=== PATIENT | male | born 1975 | race Caucasian/White ===

== ENCOUNTER 2018-05-26 07:34 | Outpatient (CLI) | payer BC, SELFPAY ==
[2018-05-26 08:37] LABS: Hemoglobin A1C 6.1 % (4.5-6.2)
[2018-05-26 09:31] LABS: ALT 26 U/L (12-78); AST 20 U/L (15-37); Albumin 3.8 g/dL (3.4-5.0); Alkaline Phosphatase 89 U/L (46-116); Anion Gap 5.6 mmol/L (3-11); BUN 15 mg/dL (7-18); Bilirubin, Total 0.9 mg/dL (0.2-1.0); CO2 32.4 mmol/L (21.0-32.0); CREATININE 0.89 mg/dL (0.70-1.30); Calcium 9.2 mg/dL (8.5-10.1); Chloride 104 mmol/L (98-107); Cholesterol 165 mg/dL (50-200); Glucose 100 mg/dL (70-100); HDL Cholesterol 57 mg/dL (40-60); LDL CHOLESTEROL 99 mg/dL (<100); Potassium 4.2 mmol/L (3.5-5.1); Sodium 142 mmol/L (136-145); Total Protein 6.6 g/dL (6.4-8.2); Triglyceride 49 mg/dL (30-150)
== END 2018-05-26 07:54 ==
PROVIDERS: PCP Family Medicine; Visit Provider Family Medicine
DX: E10.9 Type 1 diabetes mellitus without complications (principal); Z00.00 Encounter for general adult medical examination without abnormal findings
CPT/HCPCS: 36415; 80053; 80061; 83721; 83036

== ENCOUNTER 2020-05-26 10:35 | Outpatient (CLI) | payer BC, SELFPAY ==
--- NOTE | 2020-05-26 12:30 | DI.RAD_ITS ---
EXAM: XR RIBS LT W PA LAT CHEST CLINICAL HISTORY: left rib pain, PLEURODYNIA, R07.81 TECHNIQUE: COMPARISON: No exams were available for comparison FINDINGS: PA and lateral chest and 4 additional views of the left ribs were obtained. No rib fracture seen. N o evidence of pneumothorax or pleural effusion. The lungs are clear. Cardiac size is within normal limits. IMPRESSION: Negative examination of the chest and left ribs. RADIATION DOSE DELIVERED: Total DLP
== END 2020-05-26 10:55 ==
PROVIDERS: PCP Family Medicine; Visit Provider Nurse Practitioner Family
DX: R07.81 Pleurodynia (principal)
CPT/HCPCS: 71046; 71100

== ENCOUNTER 2020-09-13 20:43 | Outpatient (REF) | payer BC, SELFPAY ==
[2020-09-13 20:57] LABS: COMMENT (LAB VIEW ONLY) 140.98 mg/dL
== END 2020-09-13 20:44 | disposition home or self-care (01) ==
LOC: LBN 20:43
PROVIDERS: PCP Family Medicine; Visit Provider Physician Assistant
DX: E10.9 Type 1 diabetes mellitus without complications (principal)
CPT/HCPCS: 82043; 82570

== ENCOUNTER 2022-11-16 02:11 | Outpatient (CLI) | payer BC, SELFPAY ==
[2022-11-16 16:51] LABS: Hemoglobin A1C 5.6 % (<5.7)
[2022-11-16 17:10] LABS: COMMENT (LAB VIEW ONLY) 119.16 mg/dL; Microalb ug/mg Crea 7.6 ug/mg Cr
[2022-11-16 17:26] LABS: CREATININE 0.9 mg/dL (0.70-1.30); Estimated GFR 106.01 (mL/min/1.73m2); LDL CHOLESTEROL 114 mg/dL (<100); TSH 1.47 uIU/mL (0.36-3.74)
== END 2022-11-16 02:12 | disposition home or self-care (01) ==
LOC: LBO 02:11
PROVIDERS: PCP Family Medicine; Visit Provider Internal Medicine Endocrinology, Diabetes & Metabolism
DX: E10.9 Type 1 diabetes mellitus without complications (principal)
CPT/HCPCS: 36415; 83721; 82043; 82565; 82570; 83036; 84443

== ENCOUNTER 2024-03-16 08:47 | Emergency (ER) | payer BC, SELFPAY ==
[2024-03-16 08:51] VITALS: BP 156/94; PULSE 47; RESP 16; TEMP 36.4; O2SAT 99
--- NOTE | 2024-03-16 09:05 | ED.GENADUL_ITS ---
Discharge Plan Disposition Patient Disposition: Home Condition: Stable Discharge Details Clinical Impression: Contusion of left wrist Primary Care Provider: Carolina Gomez ED Provider: Joe Vale Home Meds and New Rx's Prescriptions: Continued Lyumjev U-100 Insulin 100 unit/mL solution 20 unit subcut BID Patient Comments: 20 units in the am 15 units at Dinner time Humulin N NPH U-100 Insulin 100 unit/mL suspension See Rx Instructions subcut BID Rx Instructions: 30 units in AM, 18 units in PM subcutaneously twice a day; variable by day of week (DME) OneTouch Verio test strips 1 EACH strip 1 ea Miscellaneous QID Qty: 200 Rx Instructions: E10.0 ivermectin 1 % cream 1 applic topical DAILY Qty: 45 3RF Rx Instructions: use pea sized amount of cream to affected area once daily. Discharge Instructions Instructions: Common Wrist Injuries ED Additional Instructions: You were seen in the emergency department for your contusion of your left wrist, there is no acute fracture seen on x-ray although there appeared to be some chronic 3 mm bone cysts in the area that you did strike your wrist that do not appear new, please speak with your primary care physician about reimaging these bone cysts to make sure that they are stable, otherwise please use the provided wrist brace for comfort, please use therapeutic dosing of Tylenol (acetamenophen) & Advil (ibuprofen) in an alternating fashion as follows: Take 1000mg of Tylenol every 6 hours without missing doses- that is 4 times per day. Skilled Nursing in between the Tylenol dosings, take 400-600mg of Advil also on a 6 hour schedule, that is also 4 times per day. The daily maximum dosing of Tylenol is 4000mg, and the daily maximum dosing of Advil is 2400mg. This is safe to do for weeks. Please note that some common cold medications & prescription pain medications may contain acetamenophen and you need to read OTC drug labels and factor that in to maximum daily dosings. Please return for any signs of neurovascular compromise or other emergent concerns Referrals: Carolina Gomez MD [Primary Care Provider] - Discharge Data Discharge Date/Time-TO BE ENTERED AT DEPARTURE: 03/16/24 10:18 HPI General Date/Time Provider Initiated Documentation: 03/16/24 08:54 . HPI Narrative: 48 year-old male presents to ED today by POV/ambulating with a chief complaint of L wrist pain after hitting his wrist on a doorknob on Saturday, 2 days ago. Patient is R-hand dominant. Quality described as hurts to move/touch, no radiation to numbness/tingling, redness, endorses mild swelling, denies proximal pain. Severity is described as moderate. Palliating factors include nothing specific attempted. Provoking factors include nothing specific. Patient not anticoagulated. Related Data Home Medications ?Medication ?Instructions ?Recorded ?Confirmed blood sugar diagnostic (OneTouch #200 strips 04/25/16 03/16/24 Verio test strips) insulin lispro-aabc 100 unit/mL 20 unit subcut BID Type 1 Diabetes 11/23/22 03/16/24 subcutaneous solution (Lyumjev U-100 Insulin) ivermectin 1 % topical cream 1 applic topical DAILY #45 grams 07/22/23 03/16/24 insulin NPH isoph U-100 human 100 See Rx Instructions subcut BID 11/29/23 03/16/24 unit/mL subcutaneous suspension (Humulin N NPH U-100 Insulin (isophane susp)) Previous Rx's ?Medication ?Instructions ?Recorded ivermectin 1 % topical cream 1 applic topical DAILY #45 grams 07/22/23 Allergies Allergy/AdvReac Type Severity Reaction Status Date / Time No Known Allergies Allergy Unverified 03/16/24 08:53 General Stated Complaint: Orthopedic MARIO: 4 Review of Systems All systems reviewed & are unremarkable except as noted in HPI and below Exam Narrative Exam Narrative: GENERAL APPEARANCE: Well-nourished, non-toxic, awake and alert, atraumatic, no acute distress. SKIN: Warm, pink, dry, intact, without rashes/lesions/ulcerations. HEAD: Normocephalic, atraumatic, normal hair distribution for gender/age. EYES: Normal conjunctiva, no exudates on lids/lashes. ENT: Nares patent, no circumoral cyanosis, no facial swelling NECK: Supple, trachea midline, painless cervical ROM. LUNGS/CHEST: Non-labored respirations, normal A/P diameter, symmetrical expansion, no chest wall deformity HEART (CV/PV): Regular rate, no peripheral edema, no JVD. ABDOMEN: Soft, non-distended, no guarding. MSK: Normal ROM, no swelling/deformity to bilateral UEs or LEs, moving all extremities without weakness, no cyanosis, spine midline without tenderness, normal curvature. left wrist mild swelling and tenderness around the distal ulna, no crepitus, no ecchymosis, neurovascularly intact in the hand, left radial pulse 2+, able to supinate pronate NEURO: Mental Status AAOx4 - alert to person, place, time, events No facial droop, no forehead involvement. Motor: No focal weakness - strength 5/5 in bilateral UEs and LEs, proximal and distal, symmetric. Sensory: sensation intact to light touch globally. Gait normal: patient ambulated without ataxia into ED room. PSYCH: euthymic, cooperative, pleasant, appropriate speech Course Vital Signs Vital signs: Vital Signs Temperature 36.4 C 03/16/24 08:51 Pulse 47 L 03/16/24 08:51 Respiratory Rate 16 03/16/24 08:51 Blood Pressure 156/94 H 03/16/24 08:51 Pulse Oximetry 99 03/16/24 08:51 Temperature 36.4 C 03/16/24 08:51 Temperature Source Oral 03/16/24 08:51 Pulse 47 L 03/16/24 08:51 Respiratory Rate 16 03/16/24 08:51 Respiratory Effort Normal, Non-Labored 03/16/24 08:55 Blood Pressure 156/94 H 03/16/24 08:51 Blood Pressure Position Sitting 03/16/24 08:51 Pulse Oximetry 99 03/16/24 08:51 Oxygen Delivery Method Room Air 03/16/24 08:51 Oxygen Flow Rate 0 03/16/24 08:51 Medical Decision Making This dictation utilizes [id number] dictation software and may contain unedited grammatical errors. 48 year-old male presents to ED today by POV/ambulating with a chief complaint of L wrist pain after hitting his wrist on a doorknob on Saturday, 2 days ago. Patient is R-hand dominant. Quality described as hurts to move/touch, no radiation to numbness/tingling, redness, endorses mild swelling, denies proximal pain. Severity is described as moderate. Palliating factors include nothing specific attempted. Provoking factors include nothing specific. Patients' medical history: Type 1 diabetes. Family and social history: Noncontributory. Pertinent exam findings / vital signs include left wrist mild swelling and tenderness around the distal ulna, no crepitus, no ecchymosis, neurovascularly intact in the hand, left radial pulse 2+, able to supinate pronate. Differential / pathologies of concern include sprain/strain, contusion, fracture. Diagnostic studies of: -XR L Wrist - no acute fracture, discussed bone cysts with patient > recc. PCP f/u. Interventions of: -wrist brace. ED Course/Assessment/Plan: 40-year-old male hit his left wrist on a doorknob he has a benign physical exam with only mild swelling without other skin changes, no signs of neurovascular compromise, x-rays negative for fracture, has 3 small bone cyst seen on x-ray in the styloid of the ulna, recommend PCP follow-up for this, recommend RICE therapy and therapeutic dosing of Tylenol and ibuprofen. Findings not consistent with fracture, neurovascular compromise. Disposition of contusion of left wrist. Patient verbalized understanding of the plan and return to ED criteria and engaged in shared decision making. Medical Records Medical records reviewed: Yes I reviewed the patient's medical records. Imaging Data Radiologic Study: Attestation: I personally reviewed and interpreted this imaging study as follows: Imaging: X-Ray Radiologist's impression: EXAM: XR WRIST LT COMP NAVICULAR CLINICAL HISTORY: L wrist pain. TECHNIQUE: 2D digital imaging was performed. COMPARISON: No exams were available for comparison FINDINGS: Four views No evidence of acute fracture nor dislocation nor significant ulnar variance. Bone density normal. No osseous lesions nor erosions nor significant degenerative changes On the medial aspect of the wrist the ulnar styloid is slightly more prominent than typical but does not appear to impact the triquetrum bone of the proximal carpal row. However, there are 3 small non expansile 2-3 millimeter cysts in this somewhat prominent ulnar styloid. IMPRESSION: Ulnar styloid findings as above. 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 Brother Alcohol abuse Brother No problems noted. Maternal Grandfather , AGE 90 Stroke Paternal Grandfather , AGE 89 No problems noted. Maternal Grandmother , AGE 93 No problems noted. Paternal Grandmother , AGE 95 No problems noted. Son No problems noted. Son No problems noted. Social History (Updated 11/24/22 @ 10:56 by Pilar Reyes) Smoking/Tobacco Use Status: Never Tobacco: How many years used: 0 Second Hand Exposure: No Smoking risk assessment performed?: Yes Alcohol Intake: current Alcohol Intake frequency: a few times a month Alcohol type: beer, wine and hard liquor Drug use: Current Sobriety Substance use type: former substance user Caregiver/Support person: No Household members: spouse and children Housing: house Number of Children: 2 Communication Needs: None Education Level: college Details: BS in Geology with environmental biology Do you need help understanding health information?: Never 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 Pets and animals: Yes Pets and animals: cat(s) and dog(s) Sexually active: Yes Do you think of yourself as: straight/heterosexual Current gender identity: male What is your relationship status?: How often do you talk on the phone with friends or family?: once per week How often do you get together with friends or relatives?: once per week How often do you attend zoroastrian or church services?: decline to answer Do you belong to any clubs or organized social groups?: yes Panel score (0-1 are the most socially isolated patients): 2 What type of physical activity do you participate in: other Details: skiing - downhill/XC and running Duration: 30-45 minutes/day Frequency: 3-4 times per week Radha/Mandaen: None Special radha needs: No Seatbelt use: always Helmet use: Yes Helmet use: always Drive intox or ride w/intox street flusher driver: No Do you feel safe at home: Yes Do you feel safe in your relationship?: Yes Additional 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 PAWSS Have you Been Recently Intoxicated or Drunk Within the Last 30 days?: No Have you Ever Experienced Previous Episodes of Alcohol Withdrawal?: No Have you ever Experienced Withdrawal Seizures?: No Have you ever Experienced Delirium Tremens(DT)s?: No Have you ever undergone Alcohol Rehabilitation Treatment (i.e, inpt ot outpatient treatment programs)?: No Have you ever Experienced Blackouts?: No Have you ever Combined Alcohol with other Downers within the last 90 days?: No Have you ever Combined Alcohol with any other Substance of Abuse during the last 90 days?: No Positive Blood Alcohol level on Presentation? [PCS.BAL]: No Evidence of Increased Autonomic Activity (i.e. HR>120, tremor, sweating, agitation, nausea)?: No Result: 0
--- NOTE | 2024-03-16 09:28 | DI.RAD_ITS ---
Exam(s) XR WRIST LT COMP NAVICULAR EXAM: XR WRIST LT COMP NAVICULAR CLINICAL HISTORY: L wrist pain. TECHNIQUE: 2D digital imaging was performed. COMPARISON: No exams were available for comparison FINDINGS: Four views No evidence of acute fracture nor dislocation nor significant ulnar variance. Bone density normal. No osseous lesions nor erosions nor significant degenerative changes On the medial aspect of the wrist the ulnar styloid is slightly more prominent than typical but does not appear to impact the triquetrum bone of the proximal carpal row. However, there are 3 small non expansile 2-3 millimeter cysts in this somewhat prominent ulnar styloid. IMPRESSION: Ulnar styloid findings as above. DATA REPOSITORY: RADIATION DOSE DELIVERED:
== END 2024-03-16 10:18 | disposition home or self-care (01) ==
PROVIDERS: Emergency Provider Physician Assistant; PCP Family Medicine
DX: S60.212A Contusion of left wrist, initial encounter (principal); M85.68 Other cyst of bone, other site; E10.3293 Type 1 diabetes mellitus with mild nonproliferative diabetic retinopathy without macular edema, bilateral; Z79.4 Long term (current) use of insulin; W22.01XA Walked into wall, initial encounter; Y93.89 Activity, other specified; Y92.39 Other specified sports and athletic area as the place of occurrence of the external cause
CPT/HCPCS: 99283; 73110

== ENCOUNTER 2024-05-29 13:38 | Outpatient (CLI) | payer BC, SELFPAY ==
--- NOTE | 2024-05-29 12:47 | DI.RAD_ITS ---
Exam(s) XR TOE RT FIFTH EXAM: XR TOE RT FIFTH CLINICAL HISTORY: PAIN TOE OF RT FOOT, M79.674. TECHNIQUE: 2D digital imaging was performed. Three images were obtained. COMPARISON: No exams were available for comparison FINDINGS: BONES: No acute fracture is present. No bony destructive lesion is seen. JOINTS: No dislocation present. The joint spaces are well maintained. SOFT TISSUE: Normal. IMPRESSION: No evidence of acute fracture, dislocation, or subluxation. DATA REPOSITORY: RADIATION DOSE DELIVERED:
== END 2024-05-29 13:58 ==
PROVIDERS: PCP Family Medicine; Visit Provider Physician Assistant Medical
DX: M79.674 Pain in right toe(s) (principal)
CPT/HCPCS: 73660

== ENCOUNTER 2024-07-14 00:21 | Outpatient (CLI) | payer BC, SELFPAY ==
--- NOTE | 2024-07-14 06:00 | DI.RAD_ITS ---
Exam(s) XR WRIST LT COMPLETE EXAM: XR WRIST LT COMPLETE CLINICAL HISTORY: f/u left wrist changes,abnl xr radius and ulna,contusion lt wrist,r93.6,s60. TECHNIQUE: 2D digital imaging was performed. Three views. COMPARISON: CR XR WRIST LT COMP NAVICULAR from 03/16/2024 FINDINGS: BONES: There is a transverse fracture through the ulnar styloid which is not displaced. No additiona l fractures. The ulnar styloid is again noted to be somewhat prominent and shows small cysts. JOINTS: The carpal bones are normally aligned. SOFT TISSUE: Normal. IMPRESSION: Nondisplaced fracture of the ulnar styloid. DATA REPOSITORY: RADIATION DOSE DELIVERED:
== END 2024-07-14 00:41 ==
LOC: DI 00:21
PROVIDERS: PCP Family Medicine; Visit Provider Family Medicine
DX: S60.212A Contusion of left wrist, initial encounter; S52.612A Displaced fracture of left ulna styloid process, initial encounter for closed fracture; X58.XXXA Exposure to other specified factors, initial encounter
CPT/HCPCS: 73110

== ENCOUNTER 2025-01-01 16:57 | Outpatient (REF) | payer BC, SELFPAY ==
[2025-01-01 21:49] LABS: Calculated LDL 93 mg/dL (<100); Cholesterol 162 mg/dL (<200); HDL Cholesterol 53 mg/dL (>or=40); Triglyceride 80 mg/dL (<150)
== END 2025-01-01 16:58 | disposition home or self-care (01) ==
LOC: LBN 16:57
PROVIDERS: PCP Family Medicine; Visit Provider Family Medicine
DX: Z13.6 Encounter for screening for cardiovascular disorders (principal)
CPT/HCPCS: 80061